=== PATIENT | female | born 1990 | race Hispanic/Latino ===

== ENCOUNTER 2017-01-06 14:03 | Emergency (ER) | payer SELFPAY ==
[2017-01-06 15:00] LABS: Basophils % (Auto) 0.9 % (0.0-1.8); Eosinophils % (Auto) 1.7 % (0.0-4.3); Hematocrit 31.5 % (30.3-42.9); Hemoglobin 9.4 gm/dl (10.1-14.3); Mean Corpuscular HGB Conc 30 % (30-34); Mean Corpuscular Hemoglobin 19 pg (28-32); Mean Corpuscular Volume 65 fl (79-97); Platelet Count 308 K/mm3 (140-440); Red Blood Count 4.86 M/mm3 (3.65-5.03); Red Cell Distribution Width 19.7 % (13.2-15.2)
[2017-01-06 15:20] LABS: Anion Gap 17 mmol/L; Blood Urea Nitrogen 13 mg/dL (7-17); Calcium 9.4 mg/dL (8.4-10.2); Carbon Dioxide 26 mmol/L (22-30); Chloride 102.8 mmol/L (98-107); Glucose 103 mg/dL (65-100); Potassium 4.5 mmol/L (3.6-5.0); Sodium 141 mmol/L (137-145)
--- NOTE | 2017-01-06 16:36 | XRay Report ---
ROUTINE CHEST, TWO VIEWS: History: Shortness of breath. PA and lateral views demonstrate the heart and mediastinal contour to be of normal size and shape. The lungs are clear and fully expanded and the soft tissues and bony structures are normal. IMPRESSION: Normal study.
[2017-01-06 20:00] VITALS: BP 124/74
[2017-01-06] MEDS ORDERED: PROVENTIL IH ONE (21:27)
--- NOTE | 2017-01-06 22:00 | Emergency Department Report ---
HPI - General Chief Complaint: Adult Asthma Time Seen by Provider: 01/06/17 21:27 - HPI HPI: Patient with history of polycystic ovarian syndrome, asthma, anemia came to the ED with shortness of breath and weakness. Patient denies any nausea or vomiting. ED Past Medical Hx - Past Medical History Previous Medical History?: Yes Hx Hypertension: Yes Hx Asthma: Yes Additional medical history: polycystic ovarian disease; anemia - Surgical History Past Surgical History?: No - Family History Family history: no significant - Social History Smoking Status: Smoker, Current Status Unknown Substance Use Type: None - Medications Home Medications: Home Medications Medication Instructions Recorded Confirmed Last Taken Type Acetaminophen/Codeine [Tylenol #3] 1 tab PO Q6H PRN #10 tab 03/22/13 Unknown Rx Gentamicin 0.3% Ophth Soln 2 drops OP Q4H #1 bottle 03/22/13 Unknown Rx HYDROcodone/APAP 5-325 [[place] 1 each PO Q6HR PRN #20 tablet 11/16/14 Unknown Rx 5/325] Ferrous Sulfate [Feosol 325 MG tab] 325 mg PO TID #90 tablet 01/06/17 Unknown Rx metFORMIN [Glucophage] 500 mg PO QAC #30 tablet 01/06/17 Unknown Rx ED Review of Systems ROS: Stated complaint: BLEEDING X 4 MO/CHEST PAIN/JOSE Other details as noted in HPI Comment: All other systems reviewed and negative Respiratory: shortness of breath Cardiovascular: as per HPI Physical Exam - Physical Exam Vital Signs: Vital Signs 01/06/17 01/06/17 14:19 19:58 Temperature 99.1 F 98.8 F Pulse Rate 70 72 Respiratory 18 Rate Blood Pressure 131/77 Blood Pressure 124/74 [Left] O2 Sat by Pulse 97 100 Oximetry Physical Exam: Gen. alert and oriented 3 in no distress Head atraumatic normocephalic Eyes PERR LA EOMI Chest regular rate and rhythm normal S1-S2 lungs clear bilaterally Abdomen soft nondistended Back no point tenderness paravertebral tenderness Neuro no focal deficit. Psych normal mood. ED Course Vital Signs 01/06/17 01/06/17 14:19 19:58 Temperature 99.1 F 98.8 F Pulse Rate 70 72 Respiratory 18 Rate Blood Pressure 131/77 Blood Pressure 124/74 [Left] O2 Sat by Pulse 97 100 Oximetry ED Medical Decision Making - Lab Data Result diagrams: 01/06/17 14:41 01/06/17 14:41 Critical care attestation.: If time is entered above; I have spent that time in minutes in the direct care of this critically ill patient, excluding procedure time. ED Disposition Clinical Impression: Anemia, Polycystic ovarian syndrome Disposition: - TO HOME OR SELFCARE Is pt being admited?: No Does the pt Need Aspirin: No Condition: Stable Prescriptions: Ferrous Sulfate [Feosol 325 MG tab] 325 mg PO TID #90 tablet metFORMIN [Glucophage] 500 mg PO QAC #30 tablet Referrals: PRIMARY CARE, [Primary Care Provider] - 3-5 Days
== END 2017-01-06 22:19 | disposition home or self-care (01) ==
LOC: ED 14:03
DX: D64.9 Anemia, unspecified (principal); E28.2 Polycystic ovarian syndrome; I10 Essential (primary) hypertension; J45.909 Unspecified asthma, uncomplicated
CPT/HCPCS: 36415; 71020; 80048; 85025; 93005; 93010; 99284